=== PATIENT | female | born 1995 | race African-American/Black ===

== ENCOUNTER 2016-12-23 16:32 | Emergency (ER) | payer OTHER ==
[~2016-12-23] VITALS: Ht 170.2 cm; Wt 97.7 kg
[~2016-12-23 16:32] MED LIST: DIVA500T35 PO; RISP3 PO
[2016-12-23 16:39] VITALS: BP 151/75
[2016-12-23 19:19] LABS: ANION GAP 12 mmol/L (8-16); CALCIUM, TOTAL 9.3 mg/dL (8.8-10.5); CARBON DIOXIDE 26 mmol/L (22-29); CHLORIDE 100 mmol/L (98-107); CREATININE 0.78 mg/dL (0.60-1.30); GLOMERULAR FILTR. RATE CALC > 60 mL/min (>60); POTASSIUM 3.4 mmol/L (3.5-5.1); SODIUM SERUM 138 mmol/L (136-145); UREA NITROGEN, BLOOD 10 mg/dL (7-18)
[2016-12-23 19:23] LABS: BASOPHILS # (AUTO) 0.17 K/uL (0.00-0.20); BASOPHILS % (AUTO) 1.4 % (0.0-2.0); EOSINOPHILS # (AUTO) 0.04 K/uL (0.00-0.70); EOSINOPHILS % (AUTO) 0.37 % (1.0-6.0); HEMATOCRIT 37.5 % (36-46); LYMPHOCYTES % (AUTO) 16.9 % (22.0-44.0); MEAN CORPUSCULAR HEMOGLOBIN 22.3 pg (26.0-34.0); MEAN CORPUSCULAR VOLUME 70 fL (80-100); MONOCYTES # (AUTO) 0.8 K/uL (0.1-1.0); MONOCYTES % (AUTO) 6.9 % (2.0-9.0); NEUTROPHILS # (AUTO) 8.7 K/uL (1.8-7.7); NEUTROPHILS % (AUTO) 74.3 % (40.0-70.0); PLATELET COUNT (AUTO) 580 K/uL (150-450); RED BLOOD CELL COUNT(AUTO) 5.37 MIL/uL (4.00-5.20); RED CELL DISTRIBUTION WIDTH 19.6 % (11.5-14.5); WHITE BLOOD COUNT (AUTO) 11.8 K/uL (4.5-11.0)
[2016-12-23 19:27] LABS: ALANINE AMINOTRANSFERASE 51 U/L (12-78); ALBUMIN 3.3 g/dL (3.4-5.0); ASPARTATE AMINOTRANSFERASE 82 U/L (15-37); BILIRUBIN,TOTAL 0.3 mg/dL (0.1-1.0); TOTAL PROTEIN, SERUM 8.4 g/dL (6.4-8.2)
[2016-12-23 19:48] LABS: RBC MORPHOLOGY COMMENT ABNORMAL RBC MORPH
[2016-12-23] MEDS ORDERED: POTASSIUM CHLORIDE 20 MEQ ER TABLET PO ONE (20:00)
== END 2016-12-23 21:06 | disposition left against medical advice (07) ==
LOC: EEVIPCON 16:32 → EMS 16:33
DX: F31.9 Bipolar disorder, unspecified (principal)
CPT/HCPCS: 36415; 80053; 80307; 85025; 99284; G0480

== ENCOUNTER 2018-06-22 16:34 | Emergency (ER) | payer OTHER ==
[~2018-06-22] VITALS: Ht 170.2 cm; Wt 81.8 kg
[~2018-06-22 16:34] MED LIST changes: +DIVA-78 PO; -DIVA500T35 PO
[2018-06-22] MEDS ORDERED: FLUTICASONE PROPIONATE 50 MCG/SPRAY 16 GM NASAL SPRAY NASAL ONE (18:45)
[2018-06-22 19:15] VITALS: BP 110/57
== END 2018-06-22 20:32 | disposition home or self-care (01) ==
LOC: EMS 16:35
DX: J30.9 Allergic rhinitis, unspecified (principal); F31.9 Bipolar disorder, unspecified

== ENCOUNTER 2020-08-10 16:01 | Emergency (ER) | payer OTHER ==
[~2020-08-10] VITALS: Ht 170.2 cm; Wt 90.9 kg
[~2020-08-10 16:01] MED LIST changes: +DIVA-112 PO; -DIVA-78 PO; -RISP3 PO; +RISP3TAB35 PO
[2020-08-10 18:28] VITALS: BP 115/76
== END 2020-08-10 18:45 | disposition home or self-care (01) ==
LOC: EMS 16:01
DX: D16.4 Benign neoplasm of bones of skull and face (principal); J32.9 Chronic sinusitis, unspecified; F31.9 Bipolar disorder, unspecified
CPT/HCPCS: 70450; 99284

== ENCOUNTER 2020-10-26 21:00 | Emergency (ER) | payer OTHER ==
[~2020-10-26] VITALS: Ht 170.2 cm; Wt 109.1 kg
[2020-10-26] MEDS ORDERED: QUET25TA PO (22:00)
[2020-10-26 23:28] LABS: BASOPHILS % (AUTO) 0.4 % (0.0-2.0); EOSINOPHILS % (AUTO) 0.9 % (1.0-6.0); HEMATOCRIT 33.4 % (36-46); HEMOGLOBIN 10.7 g/dL (12.0-16.0); LYMPHOCYTES # (AUTO) 3.4 K/uL (1.0-4.8); LYMPHOCYTES % (AUTO) 32.4 % (22.0-44.0); MEAN CORPUSCULAR HEMOGLOBIN 20.8 pg (26.0-34.0); MEAN CORPUSCULAR HGB CONC 32.1 G/dL (31.0-37.0); MEAN CORPUSCULAR VOLUME 65 fL (80-100); MONOCYTES # (AUTO) 0.8 K/uL (0.1-1.0); MONOCYTES % (AUTO) 7.2 % (2.0-9.0); NEUTROPHILS # (AUTO) 6.2 K/uL (1.8-7.7); NEUTROPHILS % (AUTO) 59.1 % (40.0-70.0); PLATELET COUNT (AUTO) 736 K/uL (150-450); RED BLOOD CELL COUNT(AUTO) 5.15 MIL/uL (4.00-5.20); RED CELL DISTRIBUTION WIDTH 20.4 % (11.5-14.5)
[2020-10-26 23:41] LABS: ANION GAP 6 mmol/L (8-16); CARBON DIOXIDE 26 mmol/L (22-29); CHLORIDE 104 mmol/L (98-107); CREATININE 0.64 mg/dL (0.60-1.30); GLOMERULAR FILTR. RATE CALC > 60 mL/min (>60); GLUCOSE,RANDOM 107 mg/dL (70-110); POTASSIUM 3.9 mmol/L (3.5-5.1); SODIUM SERUM 136 mmol/L (136-145); UREA NITROGEN, BLOOD 10 mg/dL (7-18)
[2020-10-26] MEDS ORDERED: QUEtiapine FUMARATE 25 MG TABLET PO ONE (23:45)
[2020-10-26 23:52] LABS: ALANINE AMINOTRANSFERASE 22 U/L (12-78); ALBUMIN 2.9 g/dL (3.4-5.0); ALKALINE PHOSPHATASE 137 U/L (46-116); ASPARTATE AMINOTRANSFERASE 17 U/L (15-37); BILIRUBIN,TOTAL 0.3 mg/dL (0.1-1.0); HCG,QUANTITATIVE < 1 mIU/mL (0-6); TOTAL PROTEIN, SERUM 8.5 g/dL (6.4-8.2); VALPROIC ACID 3 mcg/mL (50-100)
[2020-10-27 00:34] VITALS: BP 148/80
== END 2020-10-27 00:35 | disposition home or self-care (01) ==
LOC: EMS 21:02
DX: F31.9 Bipolar disorder, unspecified (principal); Z79.899 Other long term (current) drug therapy
CPT/HCPCS: 36415; 80053; 80164; 84702; 85025; 99284; G0480; 99283

== ENCOUNTER 2021-07-17 17:47 | Emergency (ER) | payer OTHER ==
[~2021-07-17] VITALS: Ht 170.2 cm; Wt 81.8 kg
[~2021-07-17 17:47] MED LIST changes: +QUET25TA PO; -RISP3TAB35 PO
[2021-07-17 18:02] VITALS: BP 131/103
[2021-07-17] MEDS ORDERED: SULF-261 PO (18:14)
[2021-07-17] MEDS ORDERED: CEPH500C3 PO (18:14)
== END 2021-07-17 18:22 | disposition home or self-care (01) ==
LOC: EMS 17:53
DX: L03.031 Cellulitis of right toe (principal); F31.9 Bipolar disorder, unspecified; F25.1 Schizoaffective disorder, depressive type
CPT/HCPCS: 99283; Z7502

== ENCOUNTER 2021-11-28 23:40 | Emergency (ER) | payer OTHER ==
[~2021-11-28] VITALS: Ht 170.2 cm; Wt 118.2 kg
[~2021-11-28 23:40] MED LIST changes: +CEPH-558 PO; +SULF-261 PO
[2021-11-29] MEDS ORDERED: KETOROLAC TROMETHAMINE 30 MG/ML VIAL IM ONE (01:45)
[2021-11-29] MEDS ORDERED: ACETAMINOPHEN 500 MG TABLET PO ONE (01:45)
[2021-11-29 02:19] VITALS: BP 126/74
[2021-11-29 02:24] LABS: COVID AG,FIA SOURCE NASAL SWAB
[2021-11-29 02:49] LABS: INFLUENZA TYPE A NEGATIVE FOR TYPE A (NEGATIVE); INFLUENZA TYPE B NEGATIVE FOR TYPE B (NEGATIVE)
== END 2021-11-29 03:13 | disposition home or self-care (01) ==
LOC: EMS 23:41
DX: R51.9 Headache, unspecified (principal); Z20.822 Contact with and (suspected) exposure to COVID-19; F20.9 Schizophrenia, unspecified; F31.9 Bipolar disorder, unspecified
CPT/HCPCS: 99283; 87426; 87804; 96372; J1885

== ENCOUNTER 2021-12-22 16:12 | Emergency (ER) | payer OTHER ==
[~2021-12-22] VITALS: Ht 170.2 cm; Wt 90.9 kg
[2021-12-22 17:51] LABS: EOSINOPHILS % (AUTO) 2.6 % (1.0-6.0); HEMATOCRIT 32.2 % (36-46); LYMPHOCYTES # (AUTO) 2.7 K/uL (1.0-4.8); MEAN CORPUSCULAR HEMOGLOBIN 19.9 pg (26.0-34.0); MEAN CORPUSCULAR HGB CONC 31.2 G/dL (31.0-37.0); MEAN CORPUSCULAR VOLUME 64 fL (80-100); MONOCYTES # (AUTO) 0.8 K/uL (0.1-1.0); MONOCYTES % (AUTO) 7.9 % (2.0-9.0); NEUTROPHILS # (AUTO) 6.6 K/uL (1.8-7.7); NEUTROPHILS % (AUTO) 62.5 % (40.0-70.0); PLATELET COUNT (AUTO) 597 K/uL (150-450); RED BLOOD CELL COUNT(AUTO) 5.03 MIL/uL (4.00-5.20); RED CELL DISTRIBUTION WIDTH 20.5 % (11.5-14.5)
[2021-12-22 18:02] LABS: ANION GAP 10 mmol/L (8-16); CALCIUM, TOTAL 8.9 mg/dL (8.8-10.5); CARBON DIOXIDE 25 mmol/L (22-29); CHLORIDE 104 mmol/L (98-107); CREATININE 0.68 mg/dL (0.60-1.30); GLUCOSE,RANDOM 133 mg/dL (70-110); POTASSIUM 3.8 mmol/L (3.5-5.1); SODIUM SERUM 139 mmol/L (136-145); UREA NITROGEN, BLOOD 18 mg/dL (7-18)
[2021-12-22 18:07] LABS: GLOMERULAR FILTR. RATE CALC > 60 mL/min (>60)
[2021-12-22 18:14] LABS: ALANINE AMINOTRANSFERASE 25 U/L (12-78); ALKALINE PHOSPHATASE 130 U/L (46-116); ASPARTATE AMINOTRANSFERASE 17 U/L (15-37); BILIRUBIN,TOTAL 0.2 mg/dL (0.1-1.0); HCG,QUANTITATIVE < 1 mIU/mL (0-6); LIPASE 57 U/L (73-393)
[2021-12-22 19:09] LABS: COVID AG,FIA SOURCE NASAL SWAB
[2021-12-22 19:30] LABS: APPEARANCE,URINE HAZY (CLEAR); BILIRUBIN,URINE NEGATIVE (NEGATIVE); GLUCOSE, URINE (UA) NEGATIVE (NEGATIVE); KETONES,URINE NEGATIVE (NEGATIVE); LEUKOCYTE ESTERASE ,URINE NEGATIVE (NEGATIVE); NITRATE,URINE NEGATIVE (NEGATIVE); OCCULT BLOOD,URINE SMALL (NEGATIVE); PH,URINE 5.5 (5.0-8.0); PROTEIN,URINE TRACE mg/dL (NEGATIVE); SPECIFIC GRAVITIY, URINE 1.037 (1.003-1.030); UROBILINOGEN,URINE <=1.0 mg/dL (<=1.0)
[2021-12-22 19:41] LABS: RBC,URINE 0-2 /HPF (0-2)
[2021-12-22 19:44] LABS: BACTERIA,URINE Moderate /HPF (None Seen)
[2021-12-22 19:50] LABS: INFLUENZA TYPE A NEGATIVE FOR TYPE A (NEGATIVE); INFLUENZA TYPE B NEGATIVE FOR TYPE B (NEGATIVE)
[2021-12-22] MEDS ORDERED: IBUPROFEN 600 MG TABLET PO ONE (20:15)
[2021-12-22 21:00] VITALS: BP 140/72
== END 2021-12-22 22:08 | disposition home or self-care (01) ==
LOC: EMS 16:28
DX: U07.1 COVID-19 (principal); R19.7 Diarrhea, unspecified; F20.9 Schizophrenia, unspecified; F32.9 Major depressive disorder, single episode, unspecified
CPT/HCPCS: 80053; 81001; 83690; 84702; 85025; 87086; 87804; 99283

== ENCOUNTER 2022-03-06 15:06 | Emergency (ER) | payer OTHER ==
[~2022-03-06] VITALS: Ht 170.2 cm; Wt 92.0 kg
[2022-03-06] MEDS ORDERED: ONDANSETRON HCL 4 MG/2 ML VIAL IVP ONE (18:00)
[2022-03-06] MEDS ORDERED: SODIUM CHLORIDE 0.9% 1,000 ML IV ONE (18:00)
[2022-03-06 18:19] LABS: BASOPHILS % (AUTO) 0.8 % (0.0-2.0); EOSINOPHILS % (AUTO) 2.6 % (1.0-6.0); HEMATOCRIT 32.1 % (36-46); HEMOGLOBIN 10.1 g/dL (12.0-16.0); LYMPHOCYTES # (AUTO) 1.9 K/uL (1.0-4.8); LYMPHOCYTES % (AUTO) 28.6 % (22.0-44.0); MEAN CORPUSCULAR HEMOGLOBIN 20.4 pg (26.0-34.0); MEAN CORPUSCULAR HGB CONC 31.4 G/dL (31.0-37.0); MEAN CORPUSCULAR VOLUME 65 fL (80-100); MONOCYTES # (AUTO) 0.7 K/uL (0.1-1.0); MONOCYTES % (AUTO) 10.9 % (2.0-9.0); NEUTROPHILS # (AUTO) 3.9 K/uL (1.8-7.7); NEUTROPHILS % (AUTO) 57.1 % (40.0-70.0); PLATELET COUNT (AUTO) 532 K/uL (150-450); RED BLOOD CELL COUNT(AUTO) 4.94 MIL/uL (4.00-5.20); RED CELL DISTRIBUTION WIDTH 20.5 % (11.5-14.5)
[2022-03-06 18:26] LABS: ANION GAP 9 mmol/L (8-16); CALCIUM, TOTAL 9.2 mg/dL (8.8-10.5); CARBON DIOXIDE 26 mmol/L (22-29); CHLORIDE 101 mmol/L (98-107); CREATININE 0.79 mg/dL (0.60-1.30); GLUCOSE,RANDOM 93 mg/dL (70-110); POTASSIUM 3.6 mmol/L (3.5-5.1); SODIUM SERUM 136 mmol/L (136-145); UREA NITROGEN, BLOOD 11 mg/dL (7-18)
[2022-03-06 18:29] LABS: GLOMERULAR FILTR. RATE CALC > 60 mL/min (>60)
[2022-03-06 18:40] LABS: ALANINE AMINOTRANSFERASE 29 U/L (12-78); ALBUMIN 2.9 g/dL (3.4-5.0); ALKALINE PHOSPHATASE 164 U/L (46-116); ASPARTATE AMINOTRANSFERASE 24 U/L (15-37); BILIRUBIN,TOTAL 0.3 mg/dL (0.1-1.0); HCG,QUANTITATIVE < 1 mIU/mL (0-6); TOTAL PROTEIN, SERUM 8.8 g/dL (6.4-8.2)
[2022-03-06 20:09] LABS: COVID AG,FIA SOURCE NASOPHARYNGEAL
[2022-03-06 20:35] LABS: INFLUENZA TYPE A NEGATIVE FOR TYPE A (NEGATIVE); INFLUENZA TYPE B NEGATIVE FOR TYPE B (NEGATIVE)
[2022-03-06 20:54] VITALS: BP 133/95
[2022-03-06] MEDS ORDERED: ONDA-104 PO (20:57)
[2022-03-06] MEDS ORDERED: BENZ-70 PO (20:57)
== END 2022-03-06 21:38 | disposition home or self-care (01) ==
LOC: EMS 15:20
DX: J20.9 Acute bronchitis, unspecified (principal); Z20.822 Contact with and (suspected) exposure to COVID-19; F20.9 Schizophrenia, unspecified; R11.2 Nausea with vomiting, unspecified
CPT/HCPCS: 99284; 96374; 71045; 96361; 87426; 80053; 84702; 85025; 87804; 36415; J2405; J7030

== ENCOUNTER 2022-03-07 23:06 | Emergency (ER) | payer OTHER ==
[~2022-03-07] VITALS: Ht 170.2 cm; Wt 93.2 kg
[~2022-03-07 23:06] MED LIST changes: +BENZ-70 PO; -CEPH-558 PO; -DIVA-112 PO; +ONDA-104 PO; -QUET25TA PO; -SULF-261 PO
[2022-03-08] MEDS ORDERED: ONDANSETRON HCL 4 MG/2 ML VIAL IVP ONE
[2022-03-08] MEDS ORDERED: SODIUM CHLORIDE 0.9% 1,000 ML IV ONE
[2022-03-08 00:27] LABS: EOSINOPHILS % (AUTO) 3.2 % (1.0-6.0); HEMATOCRIT 32.5 % (36-46); HEMOGLOBIN 10.2 g/dL (12.0-16.0); LYMPHOCYTES # (AUTO) 3.4 K/uL (1.0-4.8); LYMPHOCYTES % (AUTO) 40.6 % (22.0-44.0); MEAN CORPUSCULAR HEMOGLOBIN 20.3 pg (26.0-34.0); MEAN CORPUSCULAR HGB CONC 31.3 G/dL (31.0-37.0); MEAN CORPUSCULAR VOLUME 65 fL (80-100); MONOCYTES # (AUTO) 0.8 K/uL (0.1-1.0); MONOCYTES % (AUTO) 9.6 % (2.0-9.0); NEUTROPHILS # (AUTO) 3.8 K/uL (1.8-7.7); NEUTROPHILS % (AUTO) 45.6 % (40.0-70.0); PLATELET COUNT (AUTO) 547 K/uL (150-450); RED BLOOD CELL COUNT(AUTO) 5.03 MIL/uL (4.00-5.20); RED CELL DISTRIBUTION WIDTH 19.7 % (11.5-14.5)
[2022-03-08 00:35] LABS: ANION GAP 9 mmol/L (8-16); CALCIUM, TOTAL 9.3 mg/dL (8.8-10.5); CARBON DIOXIDE 26 mmol/L (22-29); CHLORIDE 99 mmol/L (98-107); CREATININE 0.81 mg/dL (0.60-1.30); GLOMERULAR FILTR. RATE CALC > 60 mL/min (>60); GLUCOSE,RANDOM 114 mg/dL (70-110); POTASSIUM 3.8 mmol/L (3.5-5.1); SODIUM SERUM 134 mmol/L (136-145); UREA NITROGEN, BLOOD 10 mg/dL (7-18)
[2022-03-08] MEDS ORDERED: ACET-66 PO (01:26)
[2022-03-08] MEDS ORDERED: GUAIFDM PO (01:26)
[2022-03-08 01:34] VITALS: BP 123/66
== END 2022-03-08 01:35 | disposition home or self-care (01) ==
LOC: EMS 23:07
DX: J06.9 Acute upper respiratory infection, unspecified (principal); R11.10 Vomiting, unspecified; J40 Bronchitis, not specified as acute or chronic; F20.9 Schizophrenia, unspecified; F32.9 Major depressive disorder, single episode, unspecified
CPT/HCPCS: 99283; 80048; 85025; 36415; 96374; 96361; J2405; J7030

== ENCOUNTER 2022-05-21 17:56 | Emergency (ER) | payer OTHER ==
[~2022-05-21] VITALS: Ht 170.2 cm; Wt 91.0 kg
[~2022-05-21 17:56] MED LIST changes: +ACET-66 PO; +BENZ-227 PO; -BENZ-70 PO; +GUAIFDM PO
[2022-05-21 19:53] LABS: BASOPHILS % (AUTO) 1.2 % (0.0-2.0); EOSINOPHILS % (AUTO) 0.3 % (1.0-6.0); HEMATOCRIT 33.4 % (36-46); HEMOGLOBIN 10.6 g/dL (12.0-16.0); LYMPHOCYTES # (AUTO) 3.3 K/uL (1.0-4.8); LYMPHOCYTES % (AUTO) 25.2 % (22.0-44.0); MEAN CORPUSCULAR HEMOGLOBIN 20.4 pg (26.0-34.0); MEAN CORPUSCULAR HGB CONC 31.8 G/dL (31.0-37.0); MEAN CORPUSCULAR VOLUME 64 fL (80-100); MONOCYTES % (AUTO) 7.6 % (2.0-9.0); NEUTROPHILS # (AUTO) 8.6 K/uL (1.8-7.7); NEUTROPHILS % (AUTO) 65.7 % (40.0-70.0); PLATELET COUNT (AUTO) 703 K/uL (150-450); RED BLOOD CELL COUNT(AUTO) 5.21 MIL/uL (4.00-5.20); RED CELL DISTRIBUTION WIDTH 19.3 % (11.5-14.5)
[2022-05-21] MEDS ORDERED: QUEtiapine FUMARATE 100 MG TABLET PO ONE (20:00)
[2022-05-21 20:09] LABS: ANION GAP 11 mmol/L (8-16); CALCIUM, TOTAL 9.3 mg/dL (8.8-10.5); CARBON DIOXIDE 24 mmol/L (22-29); CHLORIDE 104 mmol/L (98-107); CREATININE 0.98 mg/dL (0.60-1.30); GLUCOSE,RANDOM 112 mg/dL (70-110); PLATELET MORPHOLOGY COMMENT LARGE PLTS PRESENT; POTASSIUM 3.7 mmol/L (3.5-5.1); SODIUM SERUM 139 mmol/L (136-145); UREA NITROGEN, BLOOD 13 mg/dL (7-18)
[2022-05-21 20:10] LABS: GLOMERULAR FILTR. RATE CALC > 60 mL/min (>60)
[2022-05-21 20:15] LABS: ALANINE AMINOTRANSFERASE 26 U/L (12-78); ALBUMIN 3.2 g/dL (3.4-5.0); ALKALINE PHOSPHATASE 143 U/L (46-116); ASPARTATE AMINOTRANSFERASE 19 U/L (15-37); BILIRUBIN,TOTAL 0.3 mg/dL (0.1-1.0)
[2022-05-21 20:48] VITALS: BP 97/66
== END 2022-05-21 20:00 | disposition home or self-care (01) ==
LOC: EMS 17:57
DX: F25.9 Schizoaffective disorder, unspecified (principal); A08.4 Viral intestinal infection, unspecified; F41.9 Anxiety disorder, unspecified; F31.9 Bipolar disorder, unspecified
CPT/HCPCS: 99284; 80053; 85025; 36415; G0480

== ENCOUNTER 2022-06-12 17:40 | Emergency (ER) | payer OTHER ==
[~2022-06-12] VITALS: Ht 170.2 cm; Wt 92.0 kg
[2022-06-12] MEDS ORDERED: QUET25TA36 PO (17:51)
[2022-06-12] MEDS ORDERED: RISP2TAB45 PO (17:51)
[2022-06-12] MEDS ORDERED: CITA10TA99 PO (17:51)
[2022-06-12] MEDS ORDERED: LORazepam 2 MG TABLET PO ONE (18:45)
[2022-06-12 19:11] LABS: ANION GAP 13 mmol/L (8-16); CALCIUM, TOTAL 9.5 mg/dL (8.8-10.5); CARBON DIOXIDE 22 mmol/L (22-29); CHLORIDE 101 mmol/L (98-107); CREATININE 0.85 mg/dL (0.60-1.30); GLOMERULAR FILTR. RATE CALC > 60 mL/min (>60); GLUCOSE,RANDOM 148 mg/dL (70-110); POTASSIUM 3.4 mmol/L (3.5-5.1); SODIUM SERUM 136 mmol/L (136-145); UREA NITROGEN, BLOOD 7 mg/dL (7-18)
[2022-06-12 19:17] VITALS: BP 103/56
[2022-06-12 19:17] LABS: ALANINE AMINOTRANSFERASE 23 U/L (12-78); ALKALINE PHOSPHATASE 155 U/L (46-116); ASPARTATE AMINOTRANSFERASE 16 U/L (15-37); BASOPHILS % (AUTO) 0.5 % (0.0-2.0); BILIRUBIN,TOTAL 0.2 mg/dL (0.1-1.0); EOSINOPHILS % (AUTO) 0.4 % (1.0-6.0); HEMATOCRIT 33.6 % (36-46); HEMOGLOBIN 10.5 g/dL (12.0-16.0); LYMPHOCYTES # (AUTO) 2.2 K/uL (1.0-4.8); LYMPHOCYTES % (AUTO) 15.3 % (22.0-44.0); MEAN CORPUSCULAR HEMOGLOBIN 19.9 pg (26.0-34.0); MEAN CORPUSCULAR HGB CONC 31.3 G/dL (31.0-37.0); MEAN CORPUSCULAR VOLUME 64 fL (80-100); MONOCYTES # (AUTO) 0.6 K/uL (0.1-1.0); MONOCYTES % (AUTO) 4.1 % (2.0-9.0); NEUTROPHILS # (AUTO) 11.3 K/uL (1.8-7.7); NEUTROPHILS % (AUTO) 79.7 % (40.0-70.0); PLATELET COUNT (AUTO) 689 K/uL (150-450); RED BLOOD CELL COUNT(AUTO) 5.29 MIL/uL (4.00-5.20); RED CELL DISTRIBUTION WIDTH 19.6 % (11.5-14.5)
[2022-06-12 19:20] LABS: AMPHET/METH SCREEN,URINE NEGATIVE (NEGATIVE); BARBITURATE SCREEN, URINE NEGATIVE (NEGATIVE); BENZODIAZEPINES SCREEN,URINE NEGATIVE (NEGATIVE); CANNABINOID SCREEN,URINE NEGATIVE (NEGATIVE); COCAINE SCREEN,URINE NEGATIVE (NEGATIVE); METHADONE SCREEN, URINE NEGATIVE (NEGATIVE); OPIATE SCREEN,URINE NEGATIVE (NEGATIVE); PHENCYCLIDINE SCREEN,URINE NEGATIVE (NEGATIVE)
[2022-06-12 19:28] LABS: COVID AG,FIA SOURCE NASOPHARYNGEAL
[2022-06-12] MEDS ORDERED: CHLORHEXIDINE GLUCONATE 4% 118 ML TOPICAL LIQUID TP ONE (19:45)
[2022-06-12 19:59] LABS: INFLUENZA TYPE A NEGATIVE FOR TYPE A (NEGATIVE); INFLUENZA TYPE B NEGATIVE FOR TYPE B (NEGATIVE)
[2022-06-12] MEDS ORDERED: DIVA-112 PO (20:46)
[2022-06-12] MEDS ORDERED: DOXY-354 PO (20:47)
[2022-06-12 20:48] LABS: PATHOLOGY REVIEW, DIFF YES
== END 2022-06-12 20:59 | disposition home or self-care (01) ==
LOC: EMS 17:43
DX: F25.9 Schizoaffective disorder, unspecified (principal); L03.012 Cellulitis of left finger; L02.522 Furuncle left hand; K80.20 Calculus of gallbladder without cholecystitis without obstruction; F41.9 Anxiety disorder, unspecified; R00.0 Tachycardia, unspecified; F31.9 Bipolar disorder, unspecified; Z20.822 Contact with and (suspected) exposure to COVID-19
CPT/HCPCS: 76700; 80053; 80307; 84703; 85025; 87804; 99284

== ENCOUNTER 2022-12-07 16:19 | Emergency (ER) | payer OTHER ==
[~2022-12-07] VITALS: Ht 170.2 cm; Wt 104.5 kg
[~2022-12-07 16:19] MED LIST changes: -ACET-66 PO; -BENZ-227 PO; +CITA10TA99 PO; +DIVA-112 PO; +DOXY-354 PO; -GUAIFDM PO; -ONDA-104 PO; +QUET25TA36 PO; +RISP2TAB45 PO
[2022-12-07 16:26] VITALS: BP 133/95; PULSE 90; RESP 16; TEMP 99
[2022-12-07 19:07] LABS: EOSINOPHILS % (AUTO) 0.5 % (1.0-6.0); HEMATOCRIT 36.6 % (36-46); HEMOGLOBIN 11.6 g/dL (12.0-16.0); LYMPHOCYTES # (AUTO) 3.3 K/uL (1.0-4.8); LYMPHOCYTES % (AUTO) 31.2 % (22.0-44.0); MEAN CORPUSCULAR HEMOGLOBIN 21.7 pg (26.0-34.0); MEAN CORPUSCULAR HGB CONC 31.8 G/dL (31.0-37.0); MEAN CORPUSCULAR VOLUME 68 fL (80-100); MONOCYTES # (AUTO) 0.5 K/uL (0.1-1.0); MONOCYTES % (AUTO) 4.5 % (2.0-9.0); NEUTROPHILS # (AUTO) 6.6 K/uL (1.8-7.7); NEUTROPHILS % (AUTO) 62.8 % (40.0-70.0); PLATELET COUNT (AUTO) 608 K/uL (150-450); RED BLOOD CELL COUNT(AUTO) 5.37 MIL/uL (4.00-5.20); RED CELL DISTRIBUTION WIDTH 19.6 % (11.5-14.5)
[2022-12-07 19:25] LABS: ANION GAP 10 mmol/L (8-16); CALCIUM, TOTAL 9.2 mg/dL (8.8-10.5); CARBON DIOXIDE 27 mmol/L (22-29); CHLORIDE 102 mmol/L (98-107); CREATININE 0.65 mg/dL (0.60-1.30); GLOMERULAR FILTR. RATE CALC > 60 mL/min (>60); GLUCOSE,RANDOM 97 mg/dL (70-110); POTASSIUM 3.8 mmol/L (3.5-5.1); SODIUM SERUM 139 mmol/L (136-145)
[2022-12-07 19:32] LABS: ALANINE AMINOTRANSFERASE 9 U/L (12-78); ALBUMIN 3.1 g/dL (3.4-5.0); ALKALINE PHOSPHATASE 168 U/L (46-116); ASPARTATE AMINOTRANSFERASE 10 U/L (15-37); BILIRUBIN,TOTAL 0.3 mg/dL (0.1-1.0); LIPASE 18 U/L (16-77); TOTAL PROTEIN, SERUM 8.5 g/dL (6.4-8.2)
[2022-12-07] MEDS ORDERED: IBUP-1554 PO (20:25)
== END 2022-12-07 20:31 | disposition home or self-care (01) ==
LOC: EMS 16:19
DX: R07.89 Other chest pain (principal); F25.9 Schizoaffective disorder, unspecified; F41.9 Anxiety disorder, unspecified; F31.9 Bipolar disorder, unspecified
CPT/HCPCS: 80053; 83690; 84703; 85025; 85379; 93005; 99283; 99284

== ENCOUNTER 2024-02-03 13:21 | Inpatient (IN) | payer MEDICAID, OTHER ==
[~2024-02-03] VITALS: Ht 170.2 cm; Wt 109.0 kg
[~2024-02-03 13:21] MED LIST changes: -DOXY-354 PO; +IBUP-1554 PO
[2024-02-03 16:01] LABS: BASOPHILS % (AUTO) 1.1 % (0.0-2.0); EOSINOPHILS % (AUTO) 0.7 % (1.0-6.0); HEMATOCRIT 40.4 % (36-46); HEMOGLOBIN 12.8 g/dL (12.0-16.0); LYMPHOCYTES # (AUTO) 3.4 K/uL (1.0-4.8); LYMPHOCYTES % (AUTO) 28.4 % (22.0-44.0); MEAN CORPUSCULAR HEMOGLOBIN 24.5 pg (26.0-34.0); MEAN CORPUSCULAR HGB CONC 31.6 G/dL (31.0-37.0); MEAN CORPUSCULAR VOLUME 78 fL (80-100); MONOCYTES # (AUTO) 0.6 K/uL (0.1-1.0); MONOCYTES % (AUTO) 5.2 % (2.0-9.0); NEUTROPHILS # (AUTO) 7.7 K/uL (1.8-7.7); NEUTROPHILS % (AUTO) 64.6 % (40.0-70.0); PLATELET COUNT (AUTO) 602 K/uL (150-450); RED BLOOD CELL COUNT(AUTO) 5.21 MIL/uL (4.00-5.20); RED CELL DISTRIBUTION WIDTH 19.5 % (11.5-14.5); WHITE BLOOD COUNT (AUTO) 11.9 K/uL (4.5-11.0)
[2024-02-03 16:10] LABS: ANION GAP 10 mmol/L (8-16); CALCIUM, TOTAL 9.1 mg/dL (8.8-10.5); CARBON DIOXIDE 26 mmol/L (22-29); CHLORIDE 102 mmol/L (98-107); CREATININE 0.76 mg/dL (0.60-1.30); GLOMERULAR FILTR. RATE CALC > 60 mL/min (>60); GLUCOSE,RANDOM 99 mg/dL (70-110); POTASSIUM 3.1 mmol/L (3.5-5.1); SODIUM SERUM 138 mmol/L (136-145); UREA NITROGEN, BLOOD 10 mg/dL (7-18)
[2024-02-03 16:20] LABS: ALCOHOL, BLOOD (SERUM) < 3 mg/dL (0-10)
[2024-02-03 17:38] LABS: COVID AG,FIA SOURCE NASAL SWAB
[2024-02-03 17:56] LABS: SARS-COV2 (COVID) ANTIGEN,FIA Negative (Negative)
[2024-02-03] MEDS: LORazepam 1 MG TABLET PO ONE (21:26)
[2024-02-03] MEDS: RisperiDONE 1 MG TABLET PO ONE (21:26)
[2024-02-03 21:41] LABS: PH,URINE DRUG SCREEN 6.5 (5.0-8.0)
[2024-02-03 21:45] LABS: ALCOHOL, URINE DRUG SCREEN NEGATIVE (NEGATIVE); AMPHET/METH SCREEN,URINE NEGATIVE (NEGATIVE); BARBITURATE SCREEN, URINE NEGATIVE (NEGATIVE); BENZODIAZEPINES SCREEN,URINE NEGATIVE (NEGATIVE); CANNABINOID SCREEN,URINE NEGATIVE (NEGATIVE); COCAINE SCREEN,URINE NEGATIVE (NEGATIVE); METHADONE SCREEN, URINE NEGATIVE (NEGATIVE); OPIATE SCREEN,URINE NEGATIVE (NEGATIVE); PHENCYCLIDINE SCREEN,URINE NEGATIVE (NEGATIVE)
[2024-02-03] MEDS ORDERED: HALOPERIDOL 5 MG TABLET PO PRN (22:00)
[2024-02-03] MEDS ORDERED: ZOLPIDEM TARTRATE 10 MG TABLET PO PRN (22:00)
[2024-02-03] MEDS ORDERED: LORazepam 2 MG TABLET PO PRN (22:00)
[2024-02-03 22:24] LABS: APPEARANCE,URINE HAZY (CLEAR); BILIRUBIN,URINE NEGATIVE (NEGATIVE); COLOR,URINE YELLOW (YELLOW); GLUCOSE, URINE (UA) NEGATIVE (NEGATIVE); LEUKOCYTE ESTERASE ,URINE NEGATIVE (NEGATIVE); NITRATE,URINE NEGATIVE (NEGATIVE); OCCULT BLOOD,URINE NEGATIVE (NEGATIVE); PH,URINE 6.5 (5.0-8.0); PROTEIN,URINE 30-70 mg/dL (NEGATIVE); SPECIFIC GRAVITIY, URINE 1.025 (1.003-1.030)
[2024-02-03] MEDS: POTASSIUM CHLORIDE 20 MEQ ER TABLET PO ONE (22:32)
[2024-02-04 02:51] VITALS: O2SAT 99
[2024-02-04 05:03] VITALS: BP 126/64; PULSE 86; RESP 18; TEMP 98.2; O2SAT 98
[2024-02-04 08:10] VITALS: BP 116/74; PULSE 82; RESP 16; TEMP 96.9; O2SAT 97
[2024-02-04] MEDS ORDERED: OMEPRAZOLE 20 MG CAPSULE PO PRN (12:15)
[2024-02-04] MEDS ORDERED: MAG HYDROX/ALUMINUM HYD/SIMETH ES 30 ML SUSPENSION UDCUP PO PRN (12:15)
[2024-02-04] MEDS ORDERED: LOPERAMIDE HCL 2 MG CAPSULE PO PRN (12:15)
[2024-02-04] MEDS ORDERED: BENZOCAINE/MENTHOL LOZENGE PO PRN (12:15)
[2024-02-04] MEDS ORDERED: MAGNESIUM HYDROXIDE SUSPENSION 30 ML UDCUP PO PRN (12:15)
[2024-02-04] MEDS ORDERED: ALBUTEROL SULFATE HFA 90 MCG/PUFF 8 GM INHALER IH PRN (12:15)
[2024-02-04] MEDS ORDERED: PETROLATUM,WHITE 28 GM JELLY TP PRN (12:15)
[2024-02-04] MEDS ORDERED: BACITRACIN 28 GM OINTMENT TP PRN (12:15)
[2024-02-04] MEDS ORDERED: CloNIDine HCL 0.1 MG TABLET PO PRN (12:15)
[2024-02-04] MEDS ORDERED: ACETAMINOPHEN 325 MG TABLET PO PRN (12:15)
[2024-02-04] MEDS: DIVALPROEX SODIUM 500 MG DR TABLET PO SCH (17:28)
[2024-02-04] MEDS: RisperiDONE 2 MG TABLET PO SCH (17:28)
[2024-02-04] MEDS: ONDANSETRON 4 MG TABLET PO PRN (19:56)
[2024-02-04 20:26] VITALS: BP 140/95; PULSE 96; RESP 20; TEMP 97.9; O2SAT 98
[2024-02-05 08:27] VITALS: RESP 18
[2024-02-05] MEDS: IBUPROFEN 600 MG TABLET PO PRN (08:27)
[2024-02-05 08:52] VITALS: BP 119/50; PULSE 96; RESP 18; TEMP 97.7; O2SAT 97
[2024-02-05 09:27] VITALS: RESP 18
[2024-02-05 20:16] VITALS: BP 98/60; PULSE 94; RESP 18; TEMP 97.1; O2SAT 100
[2024-02-06 08:57] LABS: BASOPHILS % (AUTO) 0.2 % (0.0-2.0); EOSINOPHILS % (AUTO) 2.5 % (1.0-6.0); HEMATOCRIT 36.5 % (36-46); HEMOGLOBIN 11.8 g/dL (12.0-16.0); LYMPHOCYTES # (AUTO) 4.4 K/uL (1.0-4.8); LYMPHOCYTES % (AUTO) 47.6 % (22.0-44.0); MEAN CORPUSCULAR HEMOGLOBIN 25.3 pg (26.0-34.0); MEAN CORPUSCULAR HGB CONC 32.3 G/dL (31.0-37.0); MEAN CORPUSCULAR VOLUME 78 fL (80-100); MONOCYTES # (AUTO) 0.5 K/uL (0.1-1.0); MONOCYTES % (AUTO) 5.2 % (2.0-9.0); NEUTROPHILS # (AUTO) 4.1 K/uL (1.8-7.7); NEUTROPHILS % (AUTO) 44.5 % (40.0-70.0); PLATELET COUNT (AUTO) 504 K/uL (150-450); RED BLOOD CELL COUNT(AUTO) 4.65 MIL/uL (4.00-5.20); RED CELL DISTRIBUTION WIDTH 19.1 % (11.5-14.5); WHITE BLOOD COUNT (AUTO) 9.2 K/uL (4.5-11.0)
[2024-02-06 09:21] LABS: ALANINE AMINOTRANSFERASE 23 U/L (12-78); ALBUMIN 2.6 g/dL (3.4-5.0); ALKALINE PHOSPHATASE 109 U/L (46-116); ANION GAP 7 mmol/L (8-16); ASPARTATE AMINOTRANSFERASE 17 U/L (15-37); BILIRUBIN,TOTAL 0.3 mg/dL (0.1-1.0); CALCIUM, TOTAL 8.5 mg/dL (8.8-10.5); CARBON DIOXIDE 28 mmol/L (22-29); CHLORIDE 102 mmol/L (98-107); CHOLESTEROL 143 mg/dL (131-200); CREATININE 0.72 mg/dL (0.60-1.30); GLOMERULAR FILTR. RATE CALC > 60 mL/min (>60); GLUCOSE,RANDOM 117 mg/dL (70-110); HDL CHOLESTEROL 47 mg/dL (40-60); LDL CHOL (CALC.) 76 mg/dL (0-130); POTASSIUM 3.4 mmol/L (3.5-5.1); SODIUM SERUM 137 mmol/L (136-145); TOTAL PROTEIN, SERUM 7.1 g/dL (6.4-8.2); TRIGLYCERIDES 100 mg/dL (15-150); UREA NITROGEN, BLOOD 11 mg/dL (7-18)
[2024-02-06] MEDS: DOCUSATE SODIUM 100 MG CAPSULE PO PRN (10:01)
[2024-02-06 10:06] VITALS: BP 139/93; PULSE 101; RESP 18; TEMP 96.8; O2SAT 99
[2024-02-06 23:55] VITALS: RESP 18
[2024-02-07 12:00] VITALS: BP 128/57; PULSE 85; RESP 18; TEMP 98.1; O2SAT 100
[2024-02-07] MEDS: MICONAZOLE NITRATE 2% 45 GM VAGINAL CREAM VG SCH (16:41)
[2024-02-07] MEDS ORDERED: MICONAZOLE NITRATE 200 MG VAGINAL SUPP [3] VG SCH (17:00)
[2024-02-07 20:00] VITALS: BP 115/65; PULSE 116; RESP 18; TEMP 98.2; O2SAT 97
[2024-02-08 08:24] VITALS: BP 116/74; PULSE 87; RESP 16; TEMP 98; O2SAT 98
[2024-02-08] MEDS ORDERED: RISP-32 PO (16:31)
[2024-02-08] MEDS ORDERED: DIVA-112 PO (16:31)
== END 2024-02-08 18:32 | disposition home or self-care (01) | DRG 750 ==
LOC: EMS 13:21 → B3A 22:10
PROVIDERS: ADMIT Psychiatry & Neurology Psychiatry; ATTEND Psychiatry & Neurology Psychiatry
DX: F25.0 Schizoaffective disorder, bipolar type (principal); R45.851 Suicidal ideations; E66.9 Obesity, unspecified; Z20.822 Contact with and (suspected) exposure to COVID-19; E87.6 Hypokalemia; F41.9 Anxiety disorder, unspecified; G47.00 Insomnia, unspecified; K59.00 Constipation, unspecified; Z68.37 Body mass index [BMI] 37.0-37.9, adult
CPT/HCPCS: 80048; 80053; 80061; 80307; 81003; 85025; 99285; G0480; Q0162

== ENCOUNTER 2024-02-29 12:20 | Emergency (ER) | payer MEDICAID, OTHER ==
[~2024-02-29] VITALS: Ht 170.2 cm; Wt 115.0 kg
[~2024-02-29 12:20] MED LIST changes: -CITA10TA99 PO; -IBUP-1554 PO; -QUET25TA36 PO; +RISP-32 PO
[2024-02-29 12:22] VITALS: TEMP 98.2
[2024-02-29] MEDS: FLUCONAZOLE 150 MG TABLET PO ONE (15:48)
[2024-02-29 16:47] VITALS: BP 133/83; PULSE 93; RESP 18; O2SAT 98
== END 2024-02-29 16:54 | disposition home or self-care (01) ==
LOC: EMS 12:20
DX: N76.0 Acute vaginitis (principal); F20.9 Schizophrenia, unspecified; F31.9 Bipolar disorder, unspecified; Z98.890 Other specified postprocedural states
CPT/HCPCS: 87210; 99283

== ENCOUNTER 2024-03-06 16:40 | Emergency (ER) | payer OTHER ==
[~2024-03-06] VITALS: Ht 172.7 cm; Wt 100.0 kg
[2024-03-06 16:53] VITALS: BP 127/91; PULSE 102; RESP 18; TEMP 97.9; O2SAT 99
== END 2024-03-06 22:06 | disposition left against medical advice (07) ==
LOC: EMS 16:40
DX: Z53.21 Procedure and treatment not carried out due to patient leaving prior to being seen by health care provider (principal)

== ENCOUNTER 2024-03-06 22:39 | Emergency (ER) | payer OTHER | END 2024-03-07 02:04 | disposition left against medical advice (07) | LOC: EMS 22:39 | DX: R46.89 Other symptoms and signs involving appearance and behavior (principal); Z53.21 Procedure and treatment not carried out due to patient leaving prior to being seen by health care provider ==

== ENCOUNTER 2024-03-07 09:39 | Inpatient (IN) | payer MEDICAID ==
[~2024-03-07] VITALS: Ht 170.2 cm; Wt 110.0 kg
[~2024-03-07 09:39] MED LIST changes: -ACETAMINOPHEN 325 MG TABLET PO PRN; -DIVALPROEX SODIUM 500 MG ER TABLET PO SCH; -FOLIC ACID 1 MG TABLET PO SCH; -GuaiFENesin/D-METHORPHAN [SUGAR-FREE] 200-20MG/10 ML SYRUP UDCUP PO PRN; -HydrALAZINE HCL 10 MG TABLET PO PRN; -HydrOXYzine PAMOATE 50 MG CAPSULE PO PRN; -LOPERAMIDE HCL 2 MG CAPSULE PO PRN; -LORazepam 2 MG TABLET PO PRN; -MAG HYDROX/ALUMINUM HYD/SIMETH ES 30 ML SUSPENSION UDCUP PO PRN; -MAGNESIUM HYDROXIDE SUSPENSION 30 ML UDCUP PO PRN; -MELATONIN 5 MG TABLET PO SCH; -MULTIVITAMINS WITH MINERALS, THERAPEUTIC TABLET PO SCH; -NALTREXONE HCL 50 MG TABLET PO SCH; -OLANZapine 5 MG RAPDIS TABLET PO PRN; -OLANZapine 5 MG RAPDIS TABLET PO SCH; -PALIPERIDONE PALMITATE 156 MG/ML SYRINGE IM ONE; -PALIPERIDONE PALMITATE 234 MG/1.5 ML SYRINGE IM ONE; -PROMETHAZINE HCL 25 MG TABLET PO PRN; -THIAMINE 100 MG TABLET PO SCH; -ZOLPIDEM TARTRATE 10 MG TABLET PO PRN
[2024-03-07] MEDS ORDERED: OLANZapine 5 MG RAPDIS TABLET PO PRN (11:15)
[2024-03-07] MEDS ORDERED: ZOLPIDEM TARTRATE 10 MG TABLET PO PRN (11:15)
[2024-03-07 11:41] LABS: GLUCOMETER DEV NAME(LOC) POC.BV; POC SARS-COV2 AG, FIA NEGATIVE (NEGATIVE)
[2024-03-07] MEDS ORDERED: PALIPERIDONE PALMITATE 234 MG/1.5 ML SYRINGE IM ONE (12:15)
[2024-03-07] MEDS ORDERED: TUBERCULIN, PURIFIED PROTEIN DERIVATIVE 5 TU/0.1 ML SYRINGE ID ONE (12:15)
[2024-03-07] MEDS ORDERED: MAG HYDROX/ALUMINUM HYD/SIMETH ES 30 ML SUSPENSION UDCUP PO PRN (12:15)
[2024-03-07] MEDS ORDERED: LOPERAMIDE HCL 2 MG CAPSULE PO PRN (12:15)
[2024-03-07] MEDS ORDERED: GuaiFENesin/D-METHORPHAN [SUGAR-FREE] 200-20MG/10 ML SYRUP UDCUP PO PRN (12:15)
[2024-03-07] MEDS: THIAMINE 100 MG TABLET PO SCH (20:59)
[2024-03-07] MEDS: OLANZapine 5 MG RAPDIS TABLET PO SCH (21:00)
[2024-03-07] MEDS: DIVALPROEX SODIUM 500 MG DR TABLET PO SCH (21:00)
[2024-03-07] MEDS: MELATONIN 5 MG TABLET PO SCH (21:00)
[2024-03-07 22:23] VITALS: BP 129/74; PULSE 94; RESP 18; TEMP 97.4; O2SAT 99
[2024-03-08 08:52] LABS: BASOPHILS % (AUTO) 0.3 % (0.0-2.0); EOSINOPHILS % (AUTO) 4.5 % (1.0-6.0); HEMATOCRIT 32.9 % (36-46); HEMOGLOBIN 10.7 g/dL (12.0-16.0); LYMPHOCYTES # (AUTO) 3.4 K/uL (1.0-4.8); LYMPHOCYTES % (AUTO) 37.9 % (22.0-44.0); MEAN CORPUSCULAR HEMOGLOBIN 24.8 pg (26.0-34.0); MEAN CORPUSCULAR HGB CONC 32.5 G/dL (31.0-37.0); MEAN CORPUSCULAR VOLUME 76 fL (80-100); MONOCYTES # (AUTO) 0.5 K/uL (0.1-1.0); MONOCYTES % (AUTO) 5.7 % (2.0-9.0); NEUTROPHILS # (AUTO) 4.6 K/uL (1.8-7.7); NEUTROPHILS % (AUTO) 51.6 % (40.0-70.0); PLATELET COUNT (AUTO) 569 K/uL (150-450); RED BLOOD CELL COUNT(AUTO) 4.31 MIL/uL (4.00-5.20); RED CELL DISTRIBUTION WIDTH 17.6 % (11.5-14.5); WHITE BLOOD COUNT (AUTO) 8.9 K/uL (4.5-11.0)
[2024-03-08] MEDS: MULTIVITAMINS WITH MINERALS, THERAPEUTIC TABLET PO SCH (09:00)
[2024-03-08] MEDS: NALTREXONE HCL 50 MG TABLET PO SCH (09:00)
[2024-03-08] MEDS: FOLIC ACID 1 MG TABLET PO SCH (09:00)
[2024-03-08] MEDS: PALIPERIDONE PALMITATE 234 MG/1.5 ML SYRINGE IM ONE (09:10)
[2024-03-08 09:31] VITALS: BP 123/62; PULSE 74; RESP 17; TEMP 97.3; O2SAT 97
[2024-03-08 09:39] LABS: ALANINE AMINOTRANSFERASE 16 U/L (12-78); ALBUMIN 2.7 g/dL (3.4-5.0); ALKALINE PHOSPHATASE 99 U/L (46-116); ANION GAP 7 mmol/L (8-16); ASPARTATE AMINOTRANSFERASE 15 U/L (15-37); BILIRUBIN,TOTAL 0.3 mg/dL (0.1-1.0); CALCIUM, TOTAL 8.9 mg/dL (8.8-10.5); CARBON DIOXIDE 25 mmol/L (22-29); CHLORIDE 104 mmol/L (98-107); CHOL/HDL RATIO 2.7 (3.9-5.7); CHOLESTEROL 133 mg/dL (131-200); CREATININE 0.75 mg/dL (0.60-1.30); FREE T4 (FREE THYROXINE) 1.19 ng/dL (0.76-1.46); GLOMERULAR FILTR. RATE CALC > 60 mL/min (>60); GLUCOSE,RANDOM 97 mg/dL (70-110); HDL CHOLESTEROL 49 mg/dL (40-60); LDL CHOL (CALC.) 69 mg/dL (0-130); POTASSIUM 3.7 mmol/L (3.5-5.1); SODIUM SERUM 136 mmol/L (136-145); THYROID STIMULATING HORMONE 4.38 uIU/mL (0.36-3.74); TOTAL PROTEIN, SERUM 7.2 g/dL (6.4-8.2); TRIGLYCERIDES 74 mg/dL (15-150); UREA NITROGEN, BLOOD 10 mg/dL (7-18)
[2024-03-08 09:45] LABS: VALPROIC ACID < 3 mcg/mL (50-100)
[2024-03-08] MEDS: HydrOXYzine PAMOATE 50 MG CAPSULE PO PRN (14:01)
[2024-03-08] MEDS ORDERED: QUEtiapine FUMARATE 100 MG TABLET PO PRN (17:30)
[2024-03-08 20:07] VITALS: BP 109/74; PULSE 100; RESP 16; TEMP 97.2; O2SAT 100
[2024-03-08] MEDS: MIRTAZAPINE 15 MG TABLET PO SCH (20:50)
[2024-03-08] MEDS: QUEtiapine FUMARATE 200 MG TABLET PO SCH (20:55)
[2024-03-08] MEDS: PROMETHAZINE HCL 25 MG TABLET PO PRN (20:56)
[2024-03-09 08:16] VITALS: RESP 16
[2024-03-09] MEDS: QUEtiapine FUMARATE 25 MG TABLET PO SCH (08:20)
[2024-03-09 20:16] VITALS: BP 110/70; PULSE 101; RESP 16; TEMP 96.2; O2SAT 100
[2024-03-10 08:31] VITALS: BP 133/91; PULSE 65; RESP 16; TEMP 97.7; O2SAT 100
[2024-03-10 10:11] VITALS: RESP 16
[2024-03-10] MEDS: ACETAMINOPHEN 325 MG TABLET PO PRN (10:11)
[2024-03-10 20:15] VITALS: BP 136/87; PULSE 103; RESP 18; TEMP 98.1; O2SAT 100
[2024-03-11] MEDS ORDERED: FLUTICASONE PROPIONATE 50 MCG/SPRAY 16 GM NASAL SPRAY NASAL PRN (06:30)
[2024-03-11 08:18] VITALS: BP 128/91; PULSE 109; RESP 17; TEMP 96.9; O2SAT 99
[2024-03-11 11:26] VITALS: RESP 18
[2024-03-11 12:26] VITALS: RESP 18
[2024-03-11 17:48] VITALS: RESP 18
[2024-03-11 18:50] VITALS: RESP 18
[2024-03-11 21:15] VITALS: BP 125/89; PULSE 107; RESP 18; TEMP 97.2; O2SAT 99
[2024-03-12 08:17] VITALS: BP 149/84; PULSE 100; RESP 17; TEMP 96.8; O2SAT 98
[2024-03-12 09:02] VITALS: BP 139/84; RESP 18
[2024-03-12] MEDS: PALIPERIDONE PALMITATE 156 MG/ML SYRINGE IM ONE (12:52)
[2024-03-12] MEDS: MAGNESIUM HYDROXIDE SUSPENSION 30 ML UDCUP PO PRN (18:50)
[2024-03-12 21:11] VITALS: BP 121/91; PULSE 105; RESP 17; TEMP 98; O2SAT 98
[2024-03-13 08:15] VITALS: BP 113/92; PULSE 100; RESP 17; TEMP 97; O2SAT 98
[2024-03-13] MEDS ORDERED: HALOPERIDOL 5 MG TABLET PO PRN (15:45)
[2024-03-13 20:32] VITALS: BP 148/91; PULSE 106; RESP 17; TEMP 97.2; O2SAT 99
[2024-03-14] MEDS: LORazepam 2 MG TABLET PO PRN (09:13)
[2024-03-14 12:43] VITALS: RESP 17
[2024-03-14] MEDS ORDERED: QUET25TA PO (15:21)
[2024-03-14] MEDS ORDERED: MIRT-89 PO (15:23)
[2024-03-14] MEDS ORDERED: QUET200T PO (15:24)
[2024-03-14] MEDS ORDERED: NALT50TA33 PO (15:36)
== END 2024-03-14 17:54 | disposition home or self-care (01) | DRG 750 ==
LOC: B3A 20:22
PROVIDERS: ADMIT Psychiatry & Neurology Psychiatry; ATTEND Psychiatry & Neurology Psychiatry
PROC: GZHZZZZ Group Psychotherapy (ICD-10-PCS; principal; 2024-03-10)
PROC: GZ58ZZZ Individual Psychotherapy, Cognitive-Behavioral (ICD-10-PCS; 2024-03-10)
PROC: GZ56ZZZ Individual Psychotherapy, Supportive (ICD-10-PCS; 2024-03-10)
DX: F25.0 Schizoaffective disorder, bipolar type (principal); R45.851 Suicidal ideations; Z91.148 Patient's other noncompliance with medication regimen for other reason; I10 Essential (primary) hypertension; Z20.822 Contact with and (suspected) exposure to COVID-19; F41.9 Anxiety disorder, unspecified; E66.01 Morbid (severe) obesity due to excess calories; Z55.9 Problems related to education and literacy, unspecified; Z59.9 Problem related to housing and economic circumstances, unspecified; Z63.9 Problem related to primary support group, unspecified; Z65.3 Problems related to other legal circumstances; Z68.38 Body mass index [BMI] 38.0-38.9, adult
CPT/HCPCS: 80053; 80061; 80164; 83036; 84439; 84443; 85025; 86592; 87081

== ENCOUNTER → 2024-03-07 | Emergency (ER) | payer MEDICAID, OTHER ==
[~2024-03-07] VITALS: Ht 170.2 cm; Wt 90.9 kg
[~2024-03-07] MED LIST changes: +ACETAMINOPHEN 325 MG TABLET PO PRN; +DIVALPROEX SODIUM 500 MG ER TABLET PO SCH; +FOLIC ACID 1 MG TABLET PO SCH; +GuaiFENesin/D-METHORPHAN [SUGAR-FREE] 200-20MG/10 ML SYRUP UDCUP PO PRN; +HydrALAZINE HCL 10 MG TABLET PO PRN; +HydrOXYzine PAMOATE 50 MG CAPSULE PO PRN; +LOPERAMIDE HCL 2 MG CAPSULE PO PRN; +LORazepam 2 MG TABLET PO PRN; +MAG HYDROX/ALUMINUM HYD/SIMETH ES 30 ML SUSPENSION UDCUP PO PRN; +MAGNESIUM HYDROXIDE SUSPENSION 30 ML UDCUP PO PRN; +MELATONIN 5 MG TABLET PO SCH; +MULTIVITAMINS WITH MINERALS, THERAPEUTIC TABLET PO SCH; +NALTREXONE HCL 50 MG TABLET PO SCH; +OLANZapine 5 MG RAPDIS TABLET PO PRN; +OLANZapine 5 MG RAPDIS TABLET PO SCH; +PALIPERIDONE PALMITATE 156 MG/ML SYRINGE IM ONE; +PALIPERIDONE PALMITATE 234 MG/1.5 ML SYRINGE IM ONE; +PROMETHAZINE HCL 25 MG TABLET PO PRN; -RISP-32 PO; +THIAMINE 100 MG TABLET PO SCH; +ZOLPIDEM TARTRATE 10 MG TABLET PO PRN
[2024-03-07 13:02] VITALS: TEMP 98
[2024-03-07 13:57] LABS: BASOPHILS % (AUTO) 0.5 % (0.0-2.0); EOSINOPHILS % (AUTO) 2.5 % (1.0-6.0); HEMATOCRIT 31.5 % (36-46); HEMOGLOBIN 10.2 g/dL (12.0-16.0); LYMPHOCYTES # (AUTO) 3.5 K/uL (1.0-4.8); LYMPHOCYTES % (AUTO) 29.2 % (22.0-44.0); MEAN CORPUSCULAR HEMOGLOBIN 24.7 pg (26.0-34.0); MEAN CORPUSCULAR HGB CONC 32.3 G/dL (31.0-37.0); MEAN CORPUSCULAR VOLUME 77 fL (80-100); MONOCYTES # (AUTO) 0.7 K/uL (0.1-1.0); MONOCYTES % (AUTO) 5.9 % (2.0-9.0); NEUTROPHILS # (AUTO) 7.4 K/uL (1.8-7.7); NEUTROPHILS % (AUTO) 61.9 % (40.0-70.0); PLATELET COUNT (AUTO) 609 K/uL (150-450); RED BLOOD CELL COUNT(AUTO) 4.12 MIL/uL (4.00-5.20); RED CELL DISTRIBUTION WIDTH 17.1 % (11.5-14.5)
[2024-03-07 14:07] LABS: AMPHET/METH SCREEN,URINE NEGATIVE (NEGATIVE); BARBITURATE SCREEN, URINE NEGATIVE (NEGATIVE); BENZODIAZEPINES SCREEN,URINE NEGATIVE (NEGATIVE); CANNABINOID SCREEN,URINE NEGATIVE (NEGATIVE); COCAINE SCREEN,URINE NEGATIVE (NEGATIVE); METHADONE SCREEN, URINE NEGATIVE (NEGATIVE); OPIATE SCREEN,URINE NEGATIVE (NEGATIVE); PHENCYCLIDINE SCREEN,URINE NEGATIVE (NEGATIVE)
[2024-03-07 14:11] LABS: ANION GAP 6 mmol/L (8-16); CALCIUM, TOTAL 9.2 mg/dL (8.8-10.5); CARBON DIOXIDE 30 mmol/L (22-29); CHLORIDE 103 mmol/L (98-107); CREATININE 0.76 mg/dL (0.60-1.30); GLOMERULAR FILTR. RATE CALC > 60 mL/min (>60); GLUCOSE,RANDOM 99 mg/dL (70-110); POTASSIUM 4.5 mmol/L (3.5-5.1); SODIUM SERUM 139 mmol/L (136-145); UREA NITROGEN, BLOOD 11 mg/dL (7-18)
[2024-03-07 14:11] LABS: ALCOHOL, URINE DRUG SCREEN NEGATIVE (NEGATIVE)
[2024-03-07 14:22] LABS: ALCOHOL, BLOOD (SERUM) < 3 mg/dL (0-10)
[2024-03-07] MEDS: LORazepam 2 MG TABLET PO ONE (15:36)
[2024-03-07] MEDS: HALOPERIDOL 5 MG TABLET PO ONE (15:36)
[2024-03-07] MEDS: DiphenhydrAMINE HCL 25 MG CAPSULE PO ONE (15:36)
[2024-03-07] MEDS: TUBERCULIN, PURIFIED PROTEIN DERIVATIVE 5 TU/0.1 ML SYRINGE ID ONE (17:45)
[2024-03-07 20:28] VITALS: BP 129/60; PULSE 100; RESP 18; O2SAT 98
[2024-03-07 20:52] LABS: COVID AG,FIA SOURCE NASAL SWAB
[2024-03-07 21:28] LABS: SARS-COV2 (COVID) ANTIGEN,FIA Negative (Negative)
== END | disposition home or self-care (01) ==
LOC: EMS 12:00
DX: F25.0 Schizoaffective disorder, bipolar type (principal); R45.851 Suicidal ideations; D64.9 Anemia, unspecified; F41.9 Anxiety disorder, unspecified; Z79.899 Other long term (current) drug therapy; Z20.822 Contact with and (suspected) exposure to COVID-19
CPT/HCPCS: 99285; 87426; 80048; 84703; 85025; 36415; 80307; G0480

== ENCOUNTER 2024-05-05 18:31 | Emergency (ER) | payer MEDICAID, OTHER ==
[~2024-05-05] VITALS: Ht 170.2 cm; Wt 90.9 kg
[~2024-05-05 18:31] MED LIST changes: -DIVA-112 PO; +MIRT-89 PO; +NALT50TA33 PO; +QUET200T PO; +QUET25TA PO; -RISP2TAB45 PO
[2024-05-05 18:58] LABS: COVID AG,FIA SOURCE NASAL SWAB
[2024-05-05 19:12] LABS: RAPID GROUP A STREP NEGATIVE (NEGATIVE)
[2024-05-05 19:23] LABS: INFLUENZA TYPE B NEGATIVE FOR TYPE B (NEGATIVE)
[2024-05-05 19:24] LABS: SARS-COV2 (COVID) ANTIGEN,FIA Negative (Negative)
[2024-05-05 19:38] LABS: INFLUENZA TYPE A POSITIVE FOR TYPE A (NEGATIVE)
[2024-05-05] MEDS: ACETAMINOPHEN 325 MG TABLET PO ONE (19:59)
[2024-05-05] MEDS: ONDANSETRON 4 MG RAPDIS TABLET PO ONE (20:53)
[2024-05-05] MEDS: IBUPROFEN 600 MG TABLET PO ONE (20:53)
[2024-05-05] MEDS: SODIUM CHLORIDE 0.9% 1,000 ML IV ONE (21:34)
[2024-05-05] MEDS: GuaiFENesin/D-METHORPHAN [SUGAR-FREE] 200-20MG/10 ML SYRUP UDCUP PO ONE (22:32)
[2024-05-05] MEDS ORDERED: GUAI100L96 PO (22:40)
[2024-05-05] MEDS ORDERED: ONDA-104 PO (22:40)
[2024-05-05] MEDS ORDERED: BENZ-227 PO (22:40)
[2024-05-05 22:45] VITALS: TEMP 98.9
[2024-05-05] MEDS ORDERED: OSEL75CA45 PO (22:47)
[2024-05-05] MEDS: OSELTAMIVIR PHOSPHATE 75 MG CAPSULE PO ONE (23:25)
[2024-05-05 23:43] VITALS: BP 131/64; PULSE 99; RESP 20; O2SAT 99
== END 2024-05-06 00:09 | disposition home or self-care (01) ==
LOC: EMS 18:31
DX: J10.1 Influenza due to other identified influenza virus with other respiratory manifestations (principal); F31.9 Bipolar disorder, unspecified; F20.9 Schizophrenia, unspecified; Z79.899 Other long term (current) drug therapy; Z20.822 Contact with and (suspected) exposure to COVID-19
CPT/HCPCS: 99284; 96360; 87426; 87430; 87804; 93005; J7030